=== PATIENT | female | born 1970 | race Caucasian/White ===

== ENCOUNTER → 2018-04-01 | Outpatient (CLI) | payer BC ==
[~2018-04-01] MED LIST: CARI350; FLUO20; HYDACE5 PO; IBUP200; IBUP600 PO; IBUP800; KETO50; OXYACE5T PO
[2018-04-01 10:50] LABS: Source, Urine Clean Catch
[2018-04-01 11:24] LABS: Bacteria Few /hpf; Red Blood Cells, Urine 0-2 /hpf (0-2); Squamous Epithelial Cells Mod /hpf (Few)
== END ==
LOC: LAB SHORT 10:21 → LAB EV 10:21
PROVIDERS: Physician Assistant
DX: R35.0 Frequency of micturition (principal)
CPT/HCPCS: 81015

== ENCOUNTER 2020-07-31 09:00 | Day surgery (SDC) | payer BC ==
--- NOTE | 2020-07-31 09:30 | NUR ---
Ambulatory in Day Surgery History, Chart, Medications and Allergies reviewed before start of procedure. Lungs clear T/O to Auscultation. Patient confirms NPO status and agrees with scheduled surgery. Patient States Post-Procedure ride home has been arranged.
--- NOTE | 2020-07-31 10:18 | NUR ---
Patient up to Ambulate independently. Gait steady. Discharge instructions reviewed with patient. Patient verbalizes understanding. Copy given to patient to take home. PT ABLE TO AMBULATE TO VEHICLE.
== END 2020-07-31 22:47 | disposition home or self-care (01) ==
LOC: CT 09:00 → ORD 09:00 → CT 10:00 → ORD 22:47
DX: R00.2 Palpitations (principal); R94.39 Abnormal result of other cardiovascular function study; I10 Essential (primary) hypertension; F32.9 Major depressive disorder, single episode, unspecified; F42.9 Obsessive-compulsive disorder, unspecified; G89.29 Other chronic pain; R51.9 Headache, unspecified; Z88.6 Allergy status to analgesic agent; Z79.899 Other long term (current) drug therapy
CPT/HCPCS: 75574; Q9967

== ENCOUNTER 2021-07-06 11:41 | Day surgery (SDC) | payer BC ==
[~2021-07-06] VITALS: Ht 167.6 cm; Wt 61.1 kg
[~2021-07-06 11:41] MED LIST changes: +ATENOLOL25 MG PO; -CARI350; +Carisoprodol350 MG PO; +DULO60 PO; +HYDROCHLOROTH12.5 MG PO; +Hair, Skin & N1 EACH PO; -IBUP800; +LORA.5 PO; +META800 PO; +OMEGA-3 FISH O1 EAC6 PO; +RHINOCORT ALL8.43 M1 NS; +VICODIN HP 10-1 EAC1; +VICODIN HP 10-1 EAC1 PO; +ZYRTEC10 M2 PO
== END 2021-07-06 13:55 | disposition home or self-care (01) ==
LOC: ORSCSDS 11:41
PROVIDERS: Student in an Organized Health Care Education/Training Program
PROC: 0DBK8ZX Excision of Ascending Colon, Via Natural or Artificial Opening Endoscopic, Diagnostic (ICD-10-PCS; principal; 2021-07-06 14:00)
DX: Z12.11 Encounter for screening for malignant neoplasm of colon (principal); D12.2 Benign neoplasm of ascending colon; I10 Essential (primary) hypertension; Z79.899 Other long term (current) drug therapy
CPT/HCPCS: 88305; J0461; J2405; J2704; J7120

== ENCOUNTER 2022-12-28 07:40 | Day surgery (SDC) | payer BC ==
[~2022-12-28] VITALS: Ht 167.6 cm; Wt 61.1 kg
[2022-12-28 09:51] VITALS: BP 120/90
== END 2022-12-28 09:54 | disposition home or self-care (01) ==
LOC: ORSCSDS 07:40
PROVIDERS: Student in an Organized Health Care Education/Training Program
PROC: 0DBN8ZX Excision of Sigmoid Colon, Via Natural or Artificial Opening Endoscopic, Diagnostic (ICD-10-PCS; principal; 2022-12-28 09:00)
PROC: 0DBK8ZX Excision of Ascending Colon, Via Natural or Artificial Opening Endoscopic, Diagnostic (ICD-10-PCS; principal; 2022-12-28 09:00)
DX: Z12.11 Encounter for screening for malignant neoplasm of colon (principal); Z86.010 Personal history of colon polyps; K63.5 Polyp of colon; K64.8 Other hemorrhoids; K59.09 Other constipation; I10 Essential (primary) hypertension; F41.9 Anxiety disorder, unspecified; F32.A Depression, unspecified; F42.9 Obsessive-compulsive disorder, unspecified; Z79.899 Other long term (current) drug therapy
CPT/HCPCS: 88305; J2704; J7120

== ENCOUNTER → 2025-03-14 | Outpatient (CLI) | payer OTHER | LOC: LAB SHORT 08:20 → LAB 08:20 | DX: N39.0 Urinary tract infection, site not specified (principal) | CPT/HCPCS: 87077; 87086; 87186 ==